=== PATIENT | female | born 1945 | race Caucasian/White ===

== ENCOUNTER 2023-01-15 07:04 | Emergency (ER) | payer MEDICARE ==
[2023-01-15] MEDS ORDERED: Sodium Chloride 0.9% 1,000 ML IV ONE (07:40)
[2023-01-15 07:53] LABS: HEMATOCRIT 35.9 % (34.3-46.0); HEMOGLOBIN 11.9 g/dL (11.2-15.5); MEAN CORPUSCULAR HEMOGLOBIN 30.4 pg (31.6-35.5); MEAN CORPUSCULAR HGB CONC 33.1 g/dL (31.6-35.5); MEAN CORPUSCULAR VOLUME 91.8 fL (81.4-99.0); PLATELET COUNT,PLT 273 K/uL (130-375); RED BLOOD CELL COUNT 3.91 M/uL (3.77-5.24); WHITE BLOOD CELL COUNT,WBC 4.3 K/uL (3.2-11.0)
[2023-01-15 08:04] LABS: EOSINOPHILS ABSOLUTE MAN 0.34 K/uL (0.00-0.40); EOSINOPHILS PERCENT MAN 8 % (2-4); LYMPHOCYTES ABSOLUTE MAN 1.59 K/uL (0.8-3.3); LYMPHOCYTES PERCENT MAN 37 % (24-44); MONOCYTES ABSOLUTE MAN 0.52 K/uL (0.20-0.90); MONOCYTES PERCENT MAN 12 % (2-6); NEUTROPHILS ABSOLUTE MAN 1.85 K/uL (1.0-7.6); SEG NEUTROPHILS PERCENT MAN 43 % (36-66)
[2023-01-15 08:23] LABS: CALCIUM 8.9 mg/dL (8.5-10.1); CREATININE 0.9 mg/dL (0.6-1.0); EST CRCL DRUG DOSING (CG) 43.99 mL/min; POTASSIUM,K 3.1 mmol/L (3.6-5.2)
[2023-01-15 08:25] LABS: ANION GAP 15.1 mmol/L (5.0-14.0)
[2023-01-15] MEDS ORDERED: Potassium Chloride 20 MEQ Tab.ER PO ONE (08:40)
== END 2023-01-15 09:19 | disposition home or self-care (01) ==
LOC: JP.ED 07:04
DX: R19.7 Diarrhea, unspecified (principal); Z91.018 Allergy to other foods
CPT/HCPCS: 36415; 80048; 84443; 85025; 96360; 99284; A9270; J7030